=== PATIENT | female | born 1985 | race Caucasian/White ===

== ENCOUNTER → 2019-12-13 | Outpatient (CLI) | payer OTHER ==
--- NOTE | 2019-12-13 09:22 | MM ---
Reason for exam: clinical finding. History: Patient is nulliparous. Family history of breast cancer in paternal grandmother at age 60 and breast cancer in paternal aunt at age 30. Took hormonal contraceptives for 4 years beginning at age 22. Physical Findings: Nurse Summary: 2cm nodule in the left breast at 2 o'clock (nurse jeff). [facility] Diagnostic Mammo w CAD RICHIE Bilateral CC and MLO view(s) were taken. The breast tissue is extremely dense which could obscure a lesion on mammography. There is no discrete abnormality. These results were verbally communicated with the patient and result sheet given to the patient on 12/13/19. ASSESSMENT: Incomplete: need additional imaging evaluation, BI-RAD 0 RECOMMENDATION: Ultrasound of the left breast.
--- NOTE | 2019-12-13 09:23 | USB ---
Reason for exam: additional evaluation requested from abnormal screening. History: Patient is nulliparous. Family history of breast cancer in paternal grandmother at age 60 and breast cancer in paternal aunt at age 30. Took hormonal contraceptives for 4 years beginning at age 22. US Breast LT Left complete breast ultrasound includes all four quadrants, the retroareolar region and axilla. Finding demonstrates a 0.5 x 0.3 x 0.6cm hypoechoic lesion at 8 o'clock, non-vascular, favor debris filled cyst, a 0.9 x 0.3 x 0.9cm mixed lesion at 10 o'clock and a 1.0 x 0.3 x 1.0cm cystic lesion at 11 o'clock with septation. These results were verbally communicated with the patient and result sheet given to the patient on 12/13/19. ASSESSMENT: Probably benign, BI-RAD 3 RECOMMENDATION: Ultrasound of the left breast in 6 months. Manage patient on a clinical basis with regard to left palpable.
== END | disposition home or self-care (01) ==
LOC: RADMAMWWP 07:00
PROVIDERS: ATTEND Family Medicine
DX: N63.20 Unspecified lump in the left breast, unspecified quadrant (principal); R92.8 Other abnormal and inconclusive findings on diagnostic imaging of breast
CPT/HCPCS: 77066

== ENCOUNTER → 2020-01-26 | Outpatient (CLI) | payer OTHER ==
[2020-01-26 10:00] VITALS: BP 126/67; PULSE 67; RESP 18; TEMP 97.8
--- NOTE | 2020-01-26 10:52 | P.GSHP ---
History of Present Illness H&P Date: 01/26/20 Chief Complaint: lump in left breast Altagracia is a 34 year old white female seen in consultation for Dr. Jenkins regarding a new area of nodularity in her left breast. Bilateral mammogram was performed on . This did not reveal any discrete abnormality in the breast tissue was noted to be extremely dense. An ultrasound of the left breast was then performed which revealed several cystic lesions felt to be most likely benign. Repeat ultrasound in 6 months of the left breast was recommended. The patient initially felt a lump in the left breast on December 11. It was tender. This was just before her menstrual period. It fluctuates with respect to her menstrual period. It gets larger just before she starts her menstrual flow. She does not feel it well today, her last period was . She does not feel any other spots of concern in her breast. The discomfort is described as tenderness. It was worse with touch unit. It does not spread any place. It is a two on a scale of one to ten, ten being the worst. She does not have any history of trauma or infection in the breast. She has not had any breast biopsies. Caffeine: 10 ounces a day Smoke: Negative Chocolate: Several times a week Hormone/ control pills: Negative Family History: great aunt paternal: breast cancer dx at 30 paternal grandmother: breast cancer, liver ? mets paternal grandfather: lung Hormonal History: menarche: 13 G0 periods regular BCP:2 years in past hormones: none Surgical History: 1. opened tear ducts 2. ear tubes Medical History: 1. hyperthyroid 2. High functioning autism 3. Auditory processing disorder 4. anxiety disorder Social History: smoke: none alcohol: none drugs: none - Constitutional Constitutional: Denies chills, Denies fever - EENT Comment: wears glasses Eyes: denies blurred vision, denies pain Ears: bilateral: tinnitus Ears, nose, mouth and throat: Denies headache, Denies sore throat - Breasts Breasts: bilateral: as per HPI - Cardiovascular Cardiovascular: Denies chest pain, Denies shortness of breath - Respiratory Respiratory: Denies cough, Denies 7 - Gastrointestinal Gastrointestinal: Denies abdominal pain, Denies diarrhea, Denies nausea, Denies vomiting - Genitourinary (Female) Genitourinary: Denies dysuria, Denies hematuria - Menstruation Menstruation: Reports period normal - Musculoskeletal Musculoskeletal: Denies myalgias - Integumentary Comment: bruise easily Integumentary: Denies pruritus, Denies rash - Neurological Neurological: Denies numbness, Denies weakness - Psychiatric Psychiatric: Reports anxiety - Endocrine Comment: hyperthyroid Endocrine: Denies fatigue, Denies weight change - Hematologic/Lymphatic Comment: none - Allergic/Immunologic Allergic/Immunologic: Reports seasonal allergies Past Medical History History of Any Multi-Drug Resistant Organisms: None Reported Smoking Status: Never smoker Medications and Allergies Home Medications Medication Instructions Recorded Confirmed Type Cholecalciferol [Vitamin D3 (25 5,000 unit PO DAILY 01/26/20 01/26/20 History Mcg = 1000 Iu)] buPROPion XL [Wellbutrin Xl] 200 mg PO DAILY 01/26/20 01/26/20 History Allergies Allergy/AdvReac Type Severity Reaction Status Date / Time No Known Allergies Allergy Unverified 01/26/20 09:52 Surgical - Exam Vital Signs Temp Pulse Resp BP Pulse Ox 97.8 F 67 18 126/67 96 01/26/20 09:55 01/26/20 09:55 01/26/20 09:55 01/26/20 09:55 01/26/20 09:55 BMI 27.3 - General well developed, well nourished, no distress, moderate distress - Eyes normal ocular movement - ENT normal pinna, no hearing loss, no congestion - Neck no masses, trachea midline - Respiratory normal expansion, normal respiratory effort, clear to percussion, clear to auscultation - Cardiovascular Rhythm: regular Heart Sounds: normal: S1, S2 - Abdomen Abdomen: soft, non tender, no guarding, no rigid, no rebound - Integumentary normal turgor - Neurologic no disoriented, no combative - Musculoskeletal normal gait, normal posture - Psychiatric oriented to time, oriented to person, oriented to place, speech is normal, memory intact breast exam: BRA 32C ptosis grade1 inspection:Right breast smaller than left breast, no nipple inversion Palpation: Right breast: Dense tissue/no dominant masses or nodules of concern/fibrocystic change Right axilla: No adenopathy of concern Left breast: Larger than right breast/fibrocystic changes/dense tissue/no dominant masses or nodules of concern Left axilla: No adenopathy of concern Results Mammogram and ultrasound results reviewed Assessment and Plan Assessment: Impression: 1. hyperthyroid 2. High functioning autism 3. Auditory processing disorder 4. anxiety disorder 5. Fibrocystic breast changes 6. Cyclical breast discomfort/related to menstrual periods 7. No evidence of any lesion which would require biopsy at this time 8. Asymmetry of the breast left being larger than the right 9. hyperthyroid Plan: 1. Patient instructed to decrease caffeine intake 2. Reassurance that discomfort appears to be related to cyclical hormonal changes 3. Repeat left breast ultrasound in 6 months time CC:DR. Jenkins encounter 25 minutes, > 50% of time in planning and counselling Time with Patient: Less than 30
== END ==
LOC: WWCWWP 09:46
PROVIDERS: ATTEND Surgery
DX: Z53.9 Procedure and treatment not carried out, unspecified reason (principal)

== ENCOUNTER → 2020-06-22 | Outpatient (CLI) | payer OTHER ==
[2020-06-22 12:46] VITALS: BP 106/67; PULSE 62; RESP 16; TEMP 98
--- NOTE | 2020-06-22 13:12 | P.PN ---
Subjective Progress Note Date: 06/22/20 Principal diagnosis: fibrocystic breast changes Altagracia is a 34 year old white female seen in consultation for Dr. Jenkins on 01-26-20,regarding a new area of nodularity in her left breast. Bilateral mammogram was performed on . This did not reveal any discrete abnormality and the breast tissue was noted to be extremely dense. An ultrasound of the left breast was then performed which revealed several cystic lesions felt to be most likely benign. A repeat ultrasound was preformed on 06-18-20 which revealed several cystic clusters and repeat ultrasound in 6 months was recommended. Altagracia specific changes in her breast which she noted initially in November 2019 have improved. She develops breast swelling just before her menstrual period, however the area of nodularity does not seem to be bothering her as much as it was previously. He is not complaining of pain in her breast at this time. Caffeine: decreased from 1 cup of coffee/day to decaf., used to drink caffeinated pop and she has stopped this as well Smoke: Negative Chocolate: Several times a week Hormone/ control pills: Negative Family History: great aunt paternal: breast cancer dx at 30 paternal grandmother: breast cancer, liver ? mets paternal grandfather: lung Hormonal History: menarche: 13 G0 periods regular BCP:2 years in past hormones: none Surgical History: 1. opened tear ducts 2. ear tubes Medical History: 1. hyperthyroid 2. High functioning autism 3. Auditory processing disorder 4. anxiety disorder Social History: smoke: none alcohol: none drugs: none - Constitutional Constitutional: Denies chills, Denies fever - EENT Comment: wears glasses Eyes: denies blurred vision, denies pain Ears: bilateral: tinnitus Ears, nose, mouth and throat: Denies headache, Denies sore throat - Breasts Breasts: bilateral: as per HPI - Cardiovascular Cardiovascular: Denies chest pain, Denies shortness of breath - Respiratory Respiratory: Denies cough, - Gastrointestinal Gastrointestinal: Denies abdominal pain, Denies diarrhea, Denies nausea, Denies vomiting - Genitourinary (Female) Genitourinary: Denies dysuria, Denies hematuria - Menstruation Menstruation: Reports period normal - Musculoskeletal Musculoskeletal: Denies myalgias - Integumentary Comment: bruise easily Integumentary: Denies pruritus, Denies rash - Neurological Neurological: Denies numbness, Denies weakness - Psychiatric Psychiatric: Reports anxiety, see H&P - Endocrine Comment: hyperthyroid Endocrine: Denies fatigue, Denies weight change - Hematologic/Lymphatic Comment: none - Allergic/Immunologic Allergic/Immunologic: Reports seasonal allergies Objective - Vital Signs Vital signs: Vital Signs Temp 98.0 F 06/22/20 12:45 Pulse 62 06/22/20 12:45 Resp 16 06/22/20 12:45 BP 106/67 06/22/20 12:45 Pulse Ox 98 06/22/20 12:45 Intake & Output 06/21/20 06/22/20 06/22/20 18:59 06:59 18:59 Weight 70.307 kg - Exam BMI 28.3 - Constitutional General appearance: Present: average body habitus - EENT Eyes: Present: EOMI ENT: Present: hearing grossly normal - Neck Neck: Present: normal ROM - Respiratory Respiratory: bilateral: CTA - Cardiovascular Rhythm: regular Heart sounds: normal: S1, S2 - Gastrointestinal General gastrointestinal: Present: normal bowel sounds, soft - Musculoskeletal Musculoskeletal: Present: gait normal - Psychiatric Psychiatric: Present: A&O x's 3, appropriate affect - Additional findings Additional findings: breast exam: BRA: 34 C inspection: Ptosis grade 1 bilateral Palpation: Right breast: Multi-positional exam no dominant masses or nodules of concern/fibrocystic changes Right axilla: No adenopathy of concern Left breast: Multi-positional exam no dominant masses or nodules of concern fibrocystic changes Left axilla: No adenopathy of concern Assessment and Plan Assessment: Impression: hyperthyroid High functioning autism Auditory processing disorder anxiety disorder Fibrocystic breast changes [place] [id number] probable benign BIRADS 3 Plan: 1. Continue lifestyle modifications patient has decreased caffeine intake and has decreased discomfort in her breast and cystic changes it appears 2. Repeat left breast ultrasound in 6 months with position exam at that time 3. Patient to be seen sooner if she has any questions or concerns CC: DR. Jenkins encounter 20 minutes, > 50% of time in planning and counselling
== END | disposition home or self-care (01) ==
LOC: WWCWWP 12:35
PROVIDERS: ATTEND Surgery
DX: Z53.9 Procedure and treatment not carried out, unspecified reason (principal)

== ENCOUNTER → 2020-12-21 | Outpatient (CLI) | payer OTHER ==
--- NOTE | 2020-12-21 11:55 | USB ---
Reason for exam: follow-up at short interval from prior study. History: Patient is nulliparous. Family history of breast cancer in paternal grandmother at age 60 and breast cancer in paternal aunt at age 30. Took hormonal contraceptives for 4 years beginning at age 22. Physical Findings: Nurse Summary: bilateral nodularities (nurse mj). US Breast Limited LT Left limited breast ultrasound including focal area of concern, retroareolar and axilla demonstrates a 5 x 4 x 6mm oval, hypoechoic lesion at 8 o'clock, unchanged from previous, a 10 x 3 x 10mm oval, mixed lesion at 10 o'clock, slightly larger from previous and a 10 x 3 x 5mm lobular, mixed lesion at 11 o'clock, smaller from previous. These results were verbally communicated with the patient and result sheet given to the patient on 12/21/20. ASSESSMENT: Probably benign, BI-RAD 3 RECOMMENDATION: Ultrasound of the left breast in 6 months. Manage patient on a clinical basis.
== END | disposition home or self-care (01) ==
LOC: RADUSWWP 10:45
PROVIDERS: ATTEND Surgery
DX: R92.8 Other abnormal and inconclusive findings on diagnostic imaging of breast (principal)

== ENCOUNTER → 2020-12-28 | Outpatient (CLI) | payer OTHER ==
[2020-12-28 16:31] VITALS: BP 121/78; PULSE 76; RESP 18; TEMP 97.6
--- NOTE | 2020-12-28 16:43 | P.PN ---
Subjective Progress Note Date: 12/28/20 Principal diagnosis: fibrocystic breast disease Altagracia is a 35 year old white female seen in consultation for Dr. Jenkins in January of 2020 regarding a new area of nodularity in her left breast. Bilateral mammogram had been performed on . This did not reveal any discrete abnormality in the breast tissue which was noted to be extremely dense. An ultrasound of the breast was performed which revealed several cystic lesions felt to be most likely benign. A repeat ultrasound was performed on which revealed several cystic clusters and repeat ultrasound in 6 months was recommended. [place] [address]. This revealed several cystic lesions. These were felt to be benign. An ultrasound of the left breast in 6 months was again recommended. Altagracia does not feel any new lumps, masses or nodules in her breast. She is not complaining of any nipple discharge or skin changes. She has had no recent history of trauma or infection in the breast. Caffeine: She now is avoiding caffeine he drinks decaffeinated beverages Smoke: Negative Chocolate: Several times a week Hormone/ control pills: Negative Family History: great aunt paternal: breast cancer dx at 30 paternal grandmother: breast cancer, liver ? mets paternal grandfather: lung Hormonal History: menarche: 13 G0 periods regular BCP:2 years in past hormones: none Surgical History: 1. opened tear ducts 2. ear tubes Medical History: 1. hyperthyroid 2. High functioning autism 3. Auditory processing disorder 4. anxiety disorder Social History: smoke: none alcohol: none drugs: none - Constitutional Constitutional: Denies chills, Denies fever - EENT Comment: wears glasses Eyes: denies blurred vision, denies pain Ears: bilateral: tinnitus Ears, nose, mouth and throat: Denies headache, Denies sore throat - Breasts Breasts: bilateral: as per HPI - Cardiovascular Cardiovascular: Denies chest pain, Denies shortness of breath - Respiratory Respiratory: Denies cough - Gastrointestinal Gastrointestinal: Denies abdominal pain, Denies diarrhea, Denies nausea, Denies vomiting - Genitourinary (Female) Genitourinary: Denies dysuria, Denies hematuria - Menstruation Menstruation: Reports period normal - Musculoskeletal Musculoskeletal: Denies myalgias - Integumentary Comment: bruise easily Integumentary: Denies pruritus, Denies rash - Neurological Neurological: Denies numbness, Denies weakness - Psychiatric Psychiatric: Reports anxiety - Endocrine Comment: hyperthyroid Endocrine: Denies fatigue, Denies weight change - Hematologic/Lymphatic Comment: none - Allergic/Immunologic Allergic/Immunologic: Reports seasonal allergies Objective - Exam BMI 29.3 - Constitutional General appearance: Present: average body habitus - EENT Eyes: Present: EOMI ENT: Present: hearing grossly normal - Neck Neck: Present: normal ROM - Respiratory Respiratory: bilateral: CTA - Cardiovascular Rhythm: regular Heart sounds: normal: S1, S2 - Gastrointestinal General gastrointestinal: Present: normal bowel sounds, soft - Integumentary Integumentary: Present: normal turgor - Musculoskeletal Musculoskeletal: Present: gait normal - Psychiatric Psychiatric: Present: A&O x's 3, appropriate affect, intact judgment & insight - Additional findings Additional findings: breast exam: BRA: 36B inspection:Bilateral grade 2 ptosis Palpation: Right breast: Multi-positional exam fibrocystic changes, no dominant masses or nodules of concern Right axilla: No adenopathy of concern Left breast: Multiple positional exam fibrocystic changes, no dominant masses or nodules of concern Left axilla: No adenopathy of concern Assessment and Plan Assessment: Impression: 1. hyperthyroid 2. High functioning autism 3. Auditory processing disorder 4. anxiety disorder 5. The cystic breast changes 6. Recent left breast ultrasound probably benign BIRADS 3 Plan: 1. Patient to have repeat left breast ultrasound in 6 months 2. Patient to follow-up in 6 months after ultrasound to follow sooner if any concerns CC: Dr. Jenkins encounter 15 minutes, time spent in reviewing medical records, physical examination, and counselling.
== END | disposition home or self-care (01) ==
LOC: WWCWWP 16:21
PROVIDERS: ATTEND Surgery
DX: Z53.9 Procedure and treatment not carried out, unspecified reason (principal)

== ENCOUNTER → 2021-06-21 | Outpatient (CLI) | payer OTHER ==
--- NOTE | 2021-06-24 09:35 | USB ---
Reason for exam: follow-up at short interval from prior study. History: Patient is nulliparous. Family history of breast cancer in paternal grandmother at age 60 and breast cancer in paternal aunt at age 30. Took hormonal contraceptives for 4 years beginning at age 22. Physical Findings: Nurse did not find any significant physical abnormalities on exam. US Breast Limited LT Left limited breast ultrasound including focal area of concern, retroareolar and axilla demonstrates a 0.7 x 0.5 x 0.2cm mixed lesion at 8 o'clock, a 0.9 x 0.9 x 0.4cm mixed lesion at 10 o'clock, a 1.1 x 0.6 x 0.3cm mixed lesion at 11 o'clock and a 0.3 x 0.3 x 0.3cm cystic lesion at 3 o'clock nipple. No significant new findings when compared with previous films. These results were verbally communicated with the patient and result sheet given to the patient on 06/21/21. ASSESSMENT: Probably benign, BI-RAD 3 RECOMMENDATION: Ultrasound of the left breast in 6 months.
== END | disposition home or self-care (01) ==
LOC: RADUSWWP 06:58
PROVIDERS: ATTEND Surgery
DX: N63.22 Unspecified lump in the left breast, upper inner quadrant (principal); Z80.3 Family history of malignant neoplasm of breast; Z79.3 Long term (current) use of hormonal contraceptives

== ENCOUNTER → 2021-06-27 | Outpatient (CLI) | payer OTHER ==
[2021-06-27 09:59] VITALS: BP 120/83; PULSE 71; RESP 14; TEMP 98
--- NOTE | 2021-06-27 10:00 | P.PN ---
Subjective Progress Note Date: 06/27/21 Principal diagnosis: Nodularity left breast fibrocystic breast disease Altagracia is a 35 year old white female seen in consultation for Dr. Jenkins in January of 2020 regarding a new area of nodularity in her left breast. Bilateral mammogram had been performed on . This did not reveal any discrete abnormality in the breast tissue which was noted to be extremely dense. An ultrasound of the breast was performed which revealed several cystic lesions felt to be most likely benign. A repeat ultrasound was performed on which revealed several cystic clusters and repeat ultrasound in 6 months was recommended. [place] [address]. This revealed several cystic lesions. These were felt to be benign. An ultrasound of the left breast in 6 months was again recommended. A repeat left breast ultrasound was done on 06-21-21. This was benign BIRAD 3. Altagracia does not feel any new lumps, masses or nodules in her breast. She is not complaining of any nipple discharge or skin changes. She has had no recent history of trauma or infection in the breast. Caffeine: She now is avoiding caffeine he drinks decaffeinated beverages Smoke: Negative Chocolate: Several times a week Hormone/ control pills: Negative Family History: great aunt paternal: breast cancer dx at 30 paternal grandmother: breast cancer, liver ? mets paternal grandfather: lung paternal uncle: thyroid cancer maternal cousin: thyroid cancer Hormonal History: menarche: 13 G0 periods regular; LMP 2 weeks ago BCP:2 years in past hormones: none Surgical History: 1. opened tear ducts 2. ear tubes Medical History: 1. hyperthyroid 2. High functioning autism 3. Auditory processing disorder 4. anxiety disorder Social History: smoke: none alcohol: none drugs: none - Constitutional Constitutional: Denies chills, Denies fever - EENT Comment: wears glasses Eyes: denies blurred vision, denies pain Ears: bilateral: tinnitus Ears, nose, mouth and throat: Denies headache, Denies sore throat - Breasts Breasts: bilateral: as per HPI - Cardiovascular Cardiovascular: Denies chest pain, Denies shortness of breath - Respiratory Respiratory: Denies cough - Gastrointestinal Gastrointestinal: Denies abdominal pain, Denies diarrhea, Denies nausea, Denies vomiting - Genitourinary (Female) Genitourinary: Denies dysuria, Denies hematuria - Menstruation Menstruation: Reports period normal - Musculoskeletal Musculoskeletal: Denies myalgias - Integumentary Comment: bruise easily Integumentary: Denies pruritus, Denies rash - Neurological Neurological: Denies numbness, Denies weakness - Psychiatric Psychiatric: Reports anxiety - Endocrine Comment: hyperthyroid Endocrine: Denies fatigue, Denies weight change - Hematologic/Lymphatic Comment: none - Allergic/Immunologic Allergic/Immunologic: Reports seasonal allergies Objective - Constitutional General appearance: Present: average body habitus - EENT Eyes: Present: EOMI ENT: Present: hearing grossly normal - Neck Neck: Present: normal ROM - Respiratory Respiratory: bilateral: CTA - Cardiovascular Heart sounds: normal: S1, S2 - Gastrointestinal General gastrointestinal: Present: soft - Integumentary Integumentary: Present: normal turgor - Musculoskeletal Musculoskeletal: Present: gait normal - Psychiatric Psychiatric: Present: A&O x's 3, appropriate affect, intact judgment & insight - Additional findings Additional findings: Breast exam: BRA: 38C inspection: Grade 1 ptosis bilateral Palpation: Bypass: Multiple positional exam no dominant masses or nodules of concern Right axilla: No adenopathy of concern Left breast: Multi-positional exam no dominant masses or nodules of concern Left axilla: No adenopathy of concern Assessment and Plan Assessment: Impression: 1. hyperthyroid 2. High functioning autism 3. Auditory processing disorder 4. anxiety disorder 5. Left breast ultrasound in 6 months with physician exam at that time Plan: 1. Left breast ultrasound with physician exam at that time Cc: Dr. Jenkins
== END ==
LOC: WWCWWP 09:44
PROVIDERS: ATTEND Surgery
DX: E03.9 Hypothyroidism, unspecified (principal); F84.0 Autistic disorder; H93.25 Central auditory processing disorder; F41.9 Anxiety disorder, unspecified

== ENCOUNTER → 2021-12-20 | Outpatient (CLI) | payer OTHER ==
--- NOTE | 2021-12-20 08:46 | USB ---
Reason for exam: follow-up at short interval from prior study. History: Patient is nulliparous. Family history of breast cancer in paternal grandmother at age 60 and breast cancer in paternal aunt at age 30. Took hormonal contraceptives for 4 years beginning at age 22. Physical Findings: Nurse did not find any significant physical abnormalities on exam. US Breast Limited LT Left limited breast ultrasound including focal area of concern, retroareolar and axilla demonstrates a 10 x 4 x 10mm lobular, mixed, unchanged lesion at 10 o'clock, a 8 x 4 x 5mm lobular, mixed, unchanged lesion at 11 o'clock and a 14 x 7 x 14mm lobular mixed lesion at 11 o'clock, short term follow up recommended. These results were verbally communicated with the patient and result sheet given to the patient on 12/20/21. ASSESSMENT: Probably benign, BI-RAD 3 RECOMMENDATION: Ultrasound of the left breast in 6 months.
== END | disposition home or self-care (01) ==
LOC: RADUSWWP 07:23
PROVIDERS: ATTEND Surgery
DX: R92.8 Other abnormal and inconclusive findings on diagnostic imaging of breast (principal); Z80.3 Family history of malignant neoplasm of breast

== ENCOUNTER → 2021-12-27 | Outpatient (CLI) | payer OTHER ==
[2021-12-27 08:59] VITALS: BP 109/75; PULSE 73; RESP 18; TEMP 98
--- NOTE | 2021-12-27 09:28 | P.PN ---
Subjective Progress Note Date: 12/27/21 Principal diagnosis: fibrocystic breast changes Nodularity left breast fibrocystic breast disease Altagracia is a 35 year old white female seen in consultation for Dr. Jenkins in January of 2020 regarding a new area of nodularity in her left breast. Bilateral mammogram had been performed on . This did not reveal any discrete abnormality in the breast tissue which was noted to be extremely dense. An ultrasound of the breast was performed which revealed several cystic lesions felt to be most likely benign. A repeat ultrasound was performed on which revealed several cystic clusters and repeat ultrasound in 6 months was recommended. The patient had a repeat left breast ultrasound on . This revealed several cystic lesions. These were felt to be benign. An ultrasound of the left breast in 6 months was again recommended. A repeat left breast ultrasound was done on 06-21-21. This was benign BIRAD 3. Alatgracia does not feel any new lumps, masses or nodules in her breast. She is not complaining of any nipple discharge or skin changes. She has had no recent history of trauma or infection in the breast. A repeat ultrasound left breast ultrasound was done on 12-20-21 which was BIRAD 3 and repeat ultrasound at 6 months recommended. Caffeine: She now is avoiding caffeine he drinks decaffeinated beverages Smoke: Negative Chocolate: Several times a week Hormone/ control pills: Negative Family History: great aunt paternal: breast cancer dx at 30 paternal grandmother: breast cancer, liver ? mets paternal grandfather: lung paternal uncle: thyroid cancer maternal cousin: thyroid cancer Hormonal History: menarche: 13 G0 periods regular; LMP 2 weeks ago BCP:2 years in past hormones: none Surgical History: 1. opened tear ducts 2. ear tubes Medical History: 1. hyperthyroid 2. High functioning autism 3. Auditory processing disorder 4. anxiety disorder Social History: smoke: none alcohol: none drugs: none - Constitutional Constitutional: Denies chills, Denies fever - EENT Comment: wears glasses Eyes: denies blurred vision, denies pain Ears: bilateral: tinnitus Ears, nose, mouth and throat: Denies headache, Denies sore throat - Breasts Breasts: bilateral: as per HPI - Cardiovascular Cardiovascular: Denies chest pain, Denies shortness of breath - Respiratory Respiratory: Denies cough - Gastrointestinal Gastrointestinal: Denies abdominal pain, Denies diarrhea, Denies nausea, Denies vomiting - Genitourinary (Female) Genitourinary: Denies dysuria, Denies hematuria - Menstruation Menstruation: Reports period normal - Musculoskeletal Musculoskeletal: Denies myalgias - Integumentary Comment: bruise easily Integumentary: Denies pruritus, Denies rash - Neurological Neurological: Denies numbness, Denies weakness - Psychiatric Psychiatric: Reports anxiety - Endocrine Comment: hyperthyroid Endocrine: Denies fatigue, Denies weight change - Hematologic/Lymphatic Comment: none - Allergic/Immunologic Allergic/Immunologic: Reports seasonal allergies Objective - Vital Signs Vital signs: Vital Signs Temp 98.0 F 12/27/21 08:36 Pulse 73 12/27/21 08:36 Resp 18 12/27/21 08:36 BP 109/75 12/27/21 08:36 Pulse Ox 96 12/27/21 08:36 Intake & Output 12/26/21 12/27/21 12/27/21 18:59 06:59 18:59 Weight 77.111 kg - Exam BMI 31.1 - Constitutional General appearance: Present: cooperative - EENT Eyes: Present: EOMI ENT: Present: hearing grossly normal - Neck Neck: Present: normal ROM - Respiratory Respiratory: bilateral: CTA - Cardiovascular Rhythm: regular Heart sounds: normal: S1, S2 - Gastrointestinal General gastrointestinal: Present: soft - Integumentary Integumentary: Present: normal turgor - Musculoskeletal Musculoskeletal: Present: gait normal - Psychiatric Psychiatric: Present: A&O x's 3, appropriate affect, intact judgment & insight - Additional findings Additional findings: Breast Exam: BRA: 36B/C inspection: Ptosis Palpation: Right breast: Multi-positional exam fibrocystic changes no dominant masses or nodules of concern Right axilla: No adenopathy of concern Left breast: Multiple positional exam no dominant masses or nodules of concern Left axilla: No adenopathy of concern Assessment and Plan Assessment: Impression: Fibrocystic breast changes Family history of breast cancer Left breast ultrasound 120 822 probable benign BIRADS 3 Plan: Ultrasound left breast in 6 months with physician exam at that time/bilateral mammogram at that time as well Patient has had 1 mammogram which was done on 120 120 after which an ultrasound of the left breast was performed CC: Gregory
== END ==
LOC: WWCWWP 08:27
PROVIDERS: ATTEND Surgery
DX: N60.11 Diffuse cystic mastopathy of right breast (principal); E05.90 Thyrotoxicosis, unspecified without thyrotoxic crisis or storm; F41.9 Anxiety disorder, unspecified; Z80.3 Family history of malignant neoplasm of breast

== ENCOUNTER → 2022-06-26 | Outpatient (CLI) | payer OTHER ==
--- NOTE | 2022-06-26 14:22 | MM ---
Reason for Exam: Follow-up at short interval from prior study. Last mammogram was performed 2 year(s) and 7 month(s) ago. Patient History: Menarche at age 13. Patient has no children. Hormonal Contraceptives for 4 years from age 22 until age 26. Paternal grandmother had breast cancer, age 60. Paternal aunt had breast cancer, age 30. Last menstrual period: 06/04/2022 Risk Values: Juany 5 year model risk: 0.3%. NCI Lifetime model risk: 11.3%. Prior Study Comparison: 12/13/2019 Bilateral Diagnostic Mammogram, [facility]. 12/20/2021 Left Diagnostic Ultrasound, [facility]. Tissue Density: The breast tissue is heterogeneously dense. This may lower the sensitivity of mammography. Findings: Analyzed By CAD. New underlying nodularity within the lateral aspect of the left breast measuring up to 8 mm. These areas are circumscribed and isodense to low density and cysts are suspected. Otherwise, no significant change from prior exam. Overall Assessment: Incomplete: need additional imaging evaluation, BI-RAD 0 Management: Diagnostic Breast Ultrasound of both breasts. Lateral half right breast for suspected underlying cysts measuring up to 8 mm and follow-up for the left breast from previous as ordered. Electronically signed and approved by: Kelli Cao M.D. Radiologist
--- NOTE | 2022-06-26 15:31 | USB ---
Patient History: Menarche at age 13. Patient has no children. Hormonal Contraceptives for 4 years from age 22 until age 26. Paternal grandmother had breast cancer, age 60. Paternal aunt had breast cancer, age 30. Risk Values: Juany 5 year model risk: 0.3%. NCI Lifetime model risk: 11.3%. Prior Study Comparison: 12/13/2019 Bilateral Diagnostic Mammogram, [facility]. Findings: Targeted scanning right breast lateral half 6:00 to 12:00. There is a benign 8 mm cyst at 7:00, 6 cm from the nipple. There is a heterogeneous cystic structure measuring 9 mm at 9:00, 8 cm from the nipple, possible cyst cluster or complex cyst for which a six-month follow-up can be performed. There is a rounded hypoechoic 7 mm lesion 12:00, 4 cm from the nipple with posterior through-transmission, suspected debris filled cyst. Six-month follow-up recommended. Dense tissues are present throughout. Targeted scanning left breast 10:00 through 12:00 including the subareolar region and axilla. Relatively unchanged cyst clusters at 10:00 and 11:00 measuring up to 1.2 cm. A smaller cyst cluster at 11:00, 6 cm from the nipple measures 7 mm. Overall Assessment: Probably benign, BI-RAD 3 Management: Diagnostic Mammogram of the right breast in 6 months. 1. Six-month follow-up diagnostic right breast mammogram to reassess the new nodularity, likely corresponding to cyst clusters or complex cysts as seen on ultrasound. 2. A 6 month follow-up targeted right breast ultrasound to ensure stability of the cyst clusters/complex cyst. 3. Patient should continue monthly self breast exams. Electronically signed and approved by: Kelli Cao M.D. Radiologist
== END | disposition home or self-care (01) ==
LOC: RADMAMWWP 13:27
PROVIDERS: ATTEND Surgery
DX: R92.8 Other abnormal and inconclusive findings on diagnostic imaging of breast (principal); Z80.3 Family history of malignant neoplasm of breast
CPT/HCPCS: 77066; 76642; G0279; 77062

== ENCOUNTER → 2023-07-03 | Outpatient (CLI) | payer OTHER ==
--- NOTE | 2023-07-03 13:33 | MM ---
Reason for Exam: Follow-up at short interval from prior study. Last screening mammogram was performed 12 month(s) ago. Patient History: Menarche at age 13. Patient has no children. Premenopausal. Hormonal Contraceptives for 4 years from age 22 until age 26. Paternal grandmother had breast cancer, age 60. Paternal aunt had breast cancer, age 30. Last menstrual period: 06/13/2023 Risk Values: Juany 5 year model risk: 0.4%. NCI Lifetime model risk: 11.3%. Tissue Density: The breast tissue is extremely dense which could obscure a lesion on mammography. Findings: Analyzed By CAD. No evidence for distinct mass or distortion. No skin thickening. No suspicious calcifications. Overall Assessment: Incomplete: need additional imaging evaluation, BI-RAD 0 Management: Diagnostic Breast Ultrasound of the right breast. . Results were given to the patient verbally at the time of exam. Patient should continue monthly self-breast exams. A clinical breast exam by your physician is recommended on an annual basis. This exam should not preclude additional follow-up of suspicious palpable abnormalities. Note on Juany scores and lifetime risk: 1. A Juany score greater than 3% is considered moderate risk. If this is the case, consider specialist referral to assess eligibility for a risk reducing agent. 2. If overall lifetime risk for the development of breast cancer is 20% or higher, the patient may qualify for future screening with alternating mammogram and breast MRI. Electronically signed and approved by: Carlo Reid M.D. Radiologis
--- NOTE | 2023-07-03 13:43 | USB ---
Reason for Exam: Follow-up at short interval from prior study. Patient History: Menarche at age 13. Patient has no children. Premenopausal. Hormonal Contraceptives for 4 years from age 22 until age 26. Paternal grandmother had breast cancer, age 60. Paternal aunt had breast cancer, age 30. Risk Values: Juany 5 year model risk: 0.4%. NCI Lifetime model risk: 11.3%. Technique: Method: Targeted. Prior Study Comparison: 12/13/2019 Bilateral Diagnostic Mammogram, [facility]. 06/26/2022 Bilateral MG 3D diag mammo w/cad RICHIE, [facility]. 12/29/2022 Right MG 3D diag mammo w/cad RT, [facility]. Findings: The lower inner quadrant of the right breast, the axilla of the right breast and the retroareolar of the right breast were scanned. There is a cystic smoothly marginated lesion at the right apical position with an internal septation 5 cm from the nipple measuring 7 x 6 mm versus 8 x 5 mm previously. There is a small complex lesion noted at the right 9:00 position 8 cm from the nipple measuring 5 x 3 mm versus 9 x 4 mm. Continued follow-up is advised in 6 months. Overall Assessment: Probably benign, BI-RAD 3 Management: Diagnostic Breast Ultrasound of the right breast in 6 months. A clinical breast exam by your physician is recommended on an annual basis and results should be correlated with mammographic findings. This exam should not preclude additional follow-up of suspicious palpable abnormalities. Results were given to the patient verbally at the time of exam. Electronically signed and approved by: Carlo Reid M.D. Radiologis
--- NOTE | 2023-07-03 14:19 | P.PN ---
Subjective Progress Note Date: 07/03/23 Principal diagnosis: dense breast/fibrocystic breast changes fibrocystic breast changes Altagracia is a 36 year old white female seen in consultation for Dr. Jenkins in January of 2020 regarding a new area of nodularity in her left breast. [place] [address]. This did not reveal any discrete abnormality in the breast tissue which was noted to be extremely dense. An ultrasound of the breast was performed which revealed several cystic lesions felt to be most likely benign. [place] [address] which revealed several cystic clusters and repeat ultrasound in 6 months was recommended. [place] [address]. This revealed several cystic lesions. These were felt to be benign. An ultrasound of the left breast in 6 months was again recommended. A repeat left breast ultrasound was done on 06-21-21. This was benign BIRAD 3. The patient had a bilateral mammogram performed on 8422 followed by a bilateral breast ultrasound and a422. On the bilateral mammograms Underlying nodularity within the lateral aspect of the left breast was noted. The patient had targeted scanning of her left breast was revealed cystic clusters. In the right breast there were also cystic areas noted. The recommendation was for a repeat 6 month right breast mammogram as well as right breast ultrasound. Left breast evaluation will be repeated in one year. Altagracia does not feel any new lumps, masses or nodules in her left breast, she did state she felt some nodularity in the right breast last menstrual cycle which has dissipated. She is not complaining of any nipple discharge or skin changes. She has had no recent history of trauma or infection in the breast. 01-01-23 The patient had a right breast mammogram on 12-29-22 as well as an ultrasound; diagnostic mammogram of both breast in 6 months recommended. She is not complaining of any new lumps masses or nodules in either breast. 07-03-23 bilateral mammogram on 07-03-23 BIRAD 0 ultrasound of the right breast She is not complaining of any new lumps masses or notches of concern in either breast Caffeine: She now is avoiding caffeine she drinks decaffeinated beverages Smoke: Negative Chocolate: Several times a week Hormone/ control pills: Negative Family History: great aunt paternal: breast cancer dx at 30 paternal grandmother: breast cancer, liver ? mets paternal grandfather: lung paternal uncle: thyroid cancer maternal cousin: thyroid cancer Hormonal History: menarche: 13 G0 periods regular; LMP 2 weeks ago BCP:2 years in past hormones: none Surgical History: 1. opened tear ducts 2. ear tubes Medical History: 1. hyperthyroid; biopsy on thyroid nodule 2. High functioning autism 3. Auditory processing disorder 4. anxiety disorder Social History: smoke: none alcohol: none drugs: none - Constitutional Constitutional: Denies chills, Denies fever - EENT Comment: wears glasses Eyes: denies blurred vision, denies pain Ears: bilateral: tinnitus Ears, nose, mouth and throat: Denies headache, Denies sore throat - Breasts Breasts: bilateral: as per HPI - Cardiovascular Cardiovascular: Denies chest pain, Denies shortness of breath - Respiratory Respiratory: Denies cough - Gastrointestinal Gastrointestinal: Denies abdominal pain, Denies diarrhea, Denies nausea, Denies vomiting - Genitourinary (Female) Genitourinary: Denies dysuria, Denies hematuria - Menstruation Menstruation: Reports period normal - Musculoskeletal Musculoskeletal: Denies myalgias - Integumentary Comment: bruise easily Integumentary: Denies pruritus, Denies rash - Neurological Neurological: Denies numbness, Denies weakness - Psychiatric Psychiatric: Reports anxiety - Endocrine Comment: hyperthyroid Endocrine: Denies fatigue, Denies weight change - Hematologic/Lymphatic Comment: none - Allergic/Immunologic Allergic/Immunologic: Reports seasonal allergies Objective - Constitutional General appearance: Present: cooperative - EENT Eyes: Present: EOMI ENT: Present: hearing grossly normal - Neck Neck: Present: normal ROM - Respiratory Respiratory: bilateral: CTA - Cardiovascular Heart sounds: normal: S1, S2 - Gastrointestinal General gastrointestinal: Present: soft - Integumentary Integumentary: Present: normal turgor - Musculoskeletal Musculoskeletal: Present: gait normal - Psychiatric Psychiatric: Present: A&O x's 3, appropriate affect, intact judgment & insight - Additional findings Additional findings: Breast examination: BRA: 38B Inspection: Grade 2 ptosis Palpation: Right breast: Multi-positional exam fibrocystic changes no discrete dominant masses or nodules of concern Right axilla: No adenopathy of concern Left breast: Multi-positional exam fibrocystic changes no dominant masses or nodules of concern Left axilla: No adenopathy of concern Assessment and Plan Assessment: Impression: Fibrocystic breast changes high functioning autism hyperthyroid anxiety disorder bilateral mammogram on 07-03-23 recommend right breast ultrasound at this time Plan: right breast ultrasound, follow up after this CC: Dr. Jenkins
== END | disposition home or self-care (01) ==
LOC: RADMAMWWP 12:25
PROVIDERS: ATTEND Surgery
DX: N60.11 Diffuse cystic mastopathy of right breast (principal); N60.12 Diffuse cystic mastopathy of left breast; E05.90 Thyrotoxicosis, unspecified without thyrotoxic crisis or storm; F41.9 Anxiety disorder, unspecified; F84.0 Autistic disorder; R92.8 Other abnormal and inconclusive findings on diagnostic imaging of breast; Z80.3 Family history of malignant neoplasm of breast
CPT/HCPCS: 77066; 76642; G0279; 77062

== ENCOUNTER → 2024-02-01 | Outpatient (CLI) | payer OTHER ==
--- NOTE | 2024-02-01 10:46 | USB ---
Reason for Exam: Follow-up at short interval from prior study. Patient History: Menarche at age 13. Patient has no children. Premenopausal. Hormonal Contraceptives for 4 years from age 22 until age 26. Paternal grandmother had breast cancer, age 60. Paternal aunt had breast cancer, age 30. Risk Values: Juany 5 year model risk: 0.4%. NCI Lifetime model risk: 11.2%. Technique: Method: Targeted. Prior Study Comparison: 06/26/2022 Bilateral MG 3D diag mammo w/cad RICHIE, [facility]. 12/29/2022 Right MG 3D diag mammo w/cad RT, [facility]. 07/03/2023 Bilateral MG 3D diag mammo w/cad RICHIE, [facility]. Findings: The lower outer quadrant of the right breast, the axilla of the right breast and the retroareolar of the right breast were scanned. Targeted ultrasound right breast lower-outer quadrant 6:00 to 9:00 including scanning of the subareolar region and axilla. Scattered dense tissue is present. There is redemonstrated benign 6 mm cyst at the 8:00 position. At the 9:00 position, there is a redemonstrated lesion currently 9 x 4 x 3 mm. This is stable to slightly larger and is most suggestive of a benign cyst cluster given similar findings back to at least 12/21/2020. No additional solid or cystic lesion or axillary lymphadenopathy. Overall Assessment: Benign, BI-RAD 2 Management: Screening Mammogram of both breasts at age 41. Unless there is an indication to start sooner. A clinical breast exam by your physician is recommended on an annual basis and results should be correlated with mammographic findings. This exam should not preclude additional follow-up of suspicious palpable abnormalities. Results were given to the patient verbally at the time of exam. Electronically signed and approved by: Kelli Cao M.D. Radiologist
== END | disposition home or self-care (01) ==
LOC: RADUSWWP 10:06
PROVIDERS: ATTEND Surgery
DX: N60.01 Solitary cyst of right breast (principal); R92.8 Other abnormal and inconclusive findings on diagnostic imaging of breast; Z80.3 Family history of malignant neoplasm of breast

== ENCOUNTER → 2024-02-19 | Outpatient (CLI) | payer OTHER ==
--- NOTE | 2024-02-19 09:12 | P.PN ---
Subjective Progress Note Date: 02/19/24 07/03/23 Principal diagnosis: dense breast/fibrocystic breast changes fibrocystic breast changes Altagracia is a 36 year old white female seen in consultation for Dr. Jenkins in January of 2020 regarding a new area of nodularity in her left breast. [place] [address]. This did not reveal any discrete abnormality in the breast tissue which was noted to be extremely dense. An ultrasound of the breast was performed which revealed several cystic lesions felt to be most likely benign. [place] [address] which revealed several cystic clusters and repeat ultrasound in 6 months was recommended. [place] [address]. This revealed several cystic lesions. These were felt to be benign. An ultrasound of the left breast in 6 months was again recommended. A repeat left breast ultrasound was done on 06-21-21. This was benign BIRAD 3. The patient had a bilateral mammogram performed on 8422 followed by a bilateral breast ultrasound and a422. On the bilateral mammograms Underlying nodularity within the lateral aspect of the left breast was noted. The patient had targeted scanning of her left breast was revealed cystic clusters. In the right breast there were also cystic areas noted. The recommendation was for a repeat 6 month right breast mammogram as well as right breast ultrasound. Left breast evaluation will be repeated in one year. Altagracia does not feel any new lumps, masses or nodules in her left breast, she did state she felt some nodularity in the right breast last menstrual cycle which has dissipated. She is not complaining of any nipple discharge or skin changes. She has had no recent history of trauma or infection in the breast. 01-01-23 The patient had a right breast mammogram on 12-29-22 as well as an ultrasound; diagnostic mammogram of both breast in 6 months recommended. She is not complaining of any new lumps masses or nodules in either breast. 07-03-23 bilateral mammogram on 07-03-23 BIRAD 0 ultrasound of the right breast She is not complaining of any new lumps masses or notches of concern in either breast 02-19-24 an ultrasound of the right bresat was done on 07-03-23 following a bilateral mammogram and repeat ultrasound in 6 months recommended; a repeat ultrasound was done on 02-01-24 this was felt to be stable and bilateral mammogram at 41 recommended She noted the left nipple a slightly different color that the right nipple, she is not complaining of any new lumps masses or nodules of concern in either breast Caffeine: She now is avoiding caffeine she drinks decaffeinated beverages Smoke: Negative Chocolate: Several times a week Hormone/ control pills: Negative Family History: great aunt paternal: breast cancer dx at 30 paternal grandmother: breast cancer, liver ? mets paternal grandfather: lung paternal uncle: thyroid cancer maternal cousin: thyroid cancer Hormonal History: menarche: 13 G0 periods regular; LMP 2 weeks ago BCP:2 years in past hormones: none Surgical History: 1. opened tear ducts 2. ear tubes Medical History: 1. hyperthyroid; biopsy on thyroid nodule 2. High functioning autism 3. Auditory processing disorder 4. anxiety disorder 5. she is taking therapy for anxiety Social History: smoke: none alcohol: none drugs: none - Constitutional Constitutional: Denies chills, Denies fever - EENT Comment: wears glasses Eyes: denies blurred vision, denies pain Ears: bilateral: tinnitus Ears, nose, mouth and throat: Denies headache, Denies sore throat - Breasts Breasts: bilateral: as per HPI - Cardiovascular Cardiovascular: Denies chest pain, Denies shortness of breath - Respiratory Respiratory: Denies cough - Gastrointestinal Gastrointestinal: Denies abdominal pain, Denies diarrhea, Denies nausea, Denies vomiting - Genitourinary (Female) Genitourinary: Denies dysuria, Denies hematuria - Menstruation Menstruation: Reports period normal - Musculoskeletal Musculoskeletal: Denies myalgias - Integumentary Comment: bruise easily Integumentary: Denies pruritus, Denies rash - Neurological Neurological: Denies numbness, Denies weakness - Psychiatric Psychiatric: Reports anxiety - Endocrine Comment: hyperthyroid Endocrine: Denies fatigue, Denies weight change - Hematologic/Lymphatic Comment: none - Allergic/Immunologic Allergic/Immunologic: Reports seasonal allergies Objective - Constitutional General appearance: Present: cooperative - EENT Eyes: Present: EOMI ENT: Present: hearing grossly normal - Neck Neck: Present: normal ROM - Respiratory Respiratory: bilateral: CTA - Cardiovascular Heart sounds: normal: S1, S2 - Integumentary Integumentary: Present: normal turgor - Musculoskeletal Musculoskeletal: Present: gait normal - Psychiatric Psychiatric: Present: A&O x's 3, appropriate affect, intact judgment & insight - Additional findings Additional findings: Breast examination: BRA: 38B Inspection: Grade 2 ptosis; no color variation of the nipple areolar complex on today's examination Palpation: Right breast: Multi-positional exam fibrocystic changes no discrete dominant masses or nodules of concern Right axilla: No adenopathy of concern Left breast: Multi-positional exam fibrocystic changes no dominant masses or nodules of concern Left axilla: No adenopathy of concern Assessment and Plan Assessment: Impression: Fibrocystic breast changes high functioning autism hyperthyroid anxiety disorder bilateral mammogram on 07-03-23 recommend right breast ultrasound at this time done and repeat in 6 months ; done on 02-01-24 stable Plan: Bilateral mammogram at age 41 unless patient notes anything of concern Follow-up in 1 year for physical examination Patient to follow-up sooner any questions or concerns CC: Dr. Jenkins
[2024-02-19 10:21] VITALS: BP 112/76; PULSE 66; RESP 15; TEMP 97.9
== END ==
LOC: WWCWWP 08:41
PROVIDERS: ATTEND Surgery
DX: R92.8 Other abnormal and inconclusive findings on diagnostic imaging of breast (principal); N60.11 Diffuse cystic mastopathy of right breast; N60.12 Diffuse cystic mastopathy of left breast; E05.90 Thyrotoxicosis, unspecified without thyrotoxic crisis or storm; F41.9 Anxiety disorder, unspecified; F84.0 Autistic disorder; Z80.3 Family history of malignant neoplasm of breast